=== PATIENT | male | born 1975 | race Caucasian/White ===

== ENCOUNTER 2022-06-07 12:04 | Outpatient (CLI) | payer BC | END 2022-06-07 12:05 | disposition home or self-care (01) | LOC: BICRAD 12:04 | PROVIDERS: ATTEND Nurse Practitioner Family | DX: M54.42 Lumbago with sciatica, left side (principal); M53.3 Sacrococcygeal disorders, not elsewhere classified; M79.605 Pain in left leg; M47.816 Spondylosis without myelopathy or radiculopathy, lumbar region; M47.898 Other spondylosis, sacral and sacrococcygeal region | CPT/HCPCS: 72100; 72202 ==

== ENCOUNTER 2022-06-22 08:03 | Outpatient (CLI) | payer BC | END 2022-06-22 08:04 | disposition home or self-care (01) | LOC: TBSIIMAG 08:03 | PROVIDERS: ATTEND Nurse Practitioner Family | DX: M54.50 Low back pain, unspecified (principal) | CPT/HCPCS: 72148 ==